=== PATIENT | female | born 2005 | race Caucasian/White ===

== ENCOUNTER 2024-08-15 14:56 | Emergency (ER) | payer OTHER, SELFPAY ==
[2024-08-15 15:07] VITALS: BP 133/75; PULSE 83; RESP 16; TEMP 36.6; O2SAT 99
--- NOTE | 2024-08-15 15:48 | ED.URI ---
HPI - URI/Sore Throat General Chief Complaint: Upper Respiratory Infection Stated Complaint: DIZZY/LIGHT HEADED/SINUS SYMPTOMS Source: patient, family, RN notes reviewed and old records reviewed Mode of arrival: ambulatory Limitations: no limitations History of Present Illness HPI Narrative: 19 year old female accompanied by mother presents to express care with complaints of feelings of sinus congestion and dizziness with some facial pressure with cough since Wednesday. Patient reports that she felt hot and faint on Wednesday like she was going to pass out. She states that Wednesday she felt better just cold sinus symptoms and today she is feeling dizzy again with increased sinus congestion, facial pressure and ear pressure voiced. Patient has history of asthma and has used her rescue inhaler and lungs noted to be clear to auscultation with no tachypnea and SAO2 99% on room air. MD elicited complaint: rhinorrhea, nasal congestion and other (facial pressure and ear pressure) Pertinent past history: asthma Onset (ago): day(s) (3) Consistency: intermittent Severity: moderate Able to tolerate fluids by mouth: Yes Treatments prior to arrival: other (Destiny. Tylenol, Rescue inhaler) Related Data Home Medications ?Medication ?Instructions ?Recorded ?Confirmed ?Last Taken ?Type escitalopram oxalate 20 mg tablet mg 08/15/24 Unknown History fexofenadine 180 mg tablet mg 08/15/24 Unknown History (Allergy Relief (fexofenadine)) norethindrone 1 mg-ethin. cap 08/15/24 Unknown History estradiol 20 mcg (24)-iron 75 mg (4) capsule Allergies Allergy/AdvReac Type Severity Reaction Status Date / Time No Known Allergies Allergy Verified 08/15/24 15:28 Review of Systems Review of Systems: CONSTITUTIONAL:Reports malaise, chills, sweats, no known fever. EYES: Denies visual changes, redness, or discharge. ENT: Reports rhinorrhea, congestion, sinus pain, ear pressure and no sore throat. CARDIOVASCULAR: Denies chest pain, palpitations, or edema. RESPIRATORY: Reports cough.? Denies any dyspnea. GASTROINTESTINAL: Denies abdominal pain, nausea, vomiting, diarrhea SKIN: Denies rash or itching. MUSCULOSKELETAL: Denies myalgia. NEUROLOGIC: Denies headache reports dizziness. All systems reviewed & are unremarkable except as noted in HPI and below PMFSH Past Medical History Medical History (Updated 08/15/24 @ 16:57 by Christiana John NP) Asthma Surgical History Surgical History (Updated 08/15/24 @ 16:37 by Christiana John NP) History of tonsillectomy and adenoidectomy History of placement of ear tubes Social History Social History (Updated 08/15/24 @ 16:32 by Christiana John NP) Smoking status: Never smoker Alcohol intake: current Alcohol use details: social Substance use type: does not use Living arrangements: with roommate(s) Occupation/Education: student Gender identity (if verbalized by the patient): Female Comments At time of signature, agree with nursing past medical, surgical, social and family history. There is no relevant family history pertinent to the presenting complaint Exam Narrative: GENERAL: Well-appearing, well-nourished, and in no acute distress. HEAD: Normocephalic EYES: PERRLA, conjunctivae clear ENT: Nares clear, turbinates edematous and erythematous, clear discharge, sinus pressure. Mucous membranes moist. TM pearly rivera with dull light reflex bilaterally; no tragal tenderness. Oropharynx erythematous without lesions. Tonsils none and throat without exudate, no drooling, no hoarseness, no trismus, uvula midline.post nasal drainage NECK: Supple. No lymphadenopathy CHEST: Clear to auscultation, breath sounds equal. No wheezing, rhonchi, rales, or stridor. No respiratory distress, speaks in full sentences.SAO2 99% on room air HEART: Regular rate and rhythm. No murmur heard. SKIN: Warm, dry, no rash. NEURO: Alert and oriented x3. PSYCH: Normal mood and affect Course Course Emergency Course: Patient is aware of diagnosis, understands and agrees to treatment plan.? Anticipatory guidance given.? Patient agrees to follow-up as directed and is aware of reasons to seek care at the emergency department. Portions of this record may have been created with voice recognition software Level of Care: Express Care Visit Vital Signs Vital signs: Vital Signs Temperature 36.6 C 08/15/24 15:07 Pulse Rate 83 08/15/24 15:07 Respiratory Rate 16 08/15/24 15:07 Blood Pressure 133/75 08/15/24 15:07 Pulse Oximetry 99 08/15/24 15:07 Temperature 36.6 C 08/15/24 15:07 Pulse Rate 83 08/15/24 15:07 Respiratory Rate 16 08/15/24 15:07 Blood Pressure 133/75 08/15/24 15:07 Pulse Oximetry 99 08/15/24 15:07 Reviewed MDM - URI/Sore Throat MDM Narrative Medical decision making narrative: Differential diagnosis considered: [place] virus, strep pharyngitis, allergic rhinitis, upper respiratory tract infection, sinusitis, rhinosinusitis, nasopharyngitis. viral pharyngitis, otitis media, otitis externa, pneumonia, bronchitis, viral cough syndrome, viral syndrome, and influenza.? Exam findings show no acute concerns or changes; patient is non-toxic appearing and is in no distress.? Patient is appropriate for outpatient treatment and follow-up. Differential Diagnosis Differential diagnosis: Likely upper respiratory infection, otitis media, sinusitis, viral infection and other (dizziness) Medical Records Attestation: I reviewed the patient's medical records. Lab Data Attestation: I reviewed the patient's lab results. Critical Care Time Critical Care Time Critical Care Time: No Discharge Plan Discharge Clinical Impression: Bacterial sinusitis, Dizziness Patient Disposition: Home, Self-Care Condition: Stable Instructions: Antibiotic Form, Rhinosinusitis (ED) Additional Instructions: Increase fluids especially juices and water [id number] cough and cold medicine of your choice for your symptoms Continue Destiny daily Continue your inhaler/nebulizer as directed Steroids as directed--take with food heat to the face 20-30 minutes 4-6 times a day for pain Salt water gargles, throat lozenges or throat sprays as desired Antibiotic as directed--finished the medication If your symptoms persist, change or worsen significantly before you can contact your personal physician then please, without delay, go to the emergency department for further evaluation. Follow-up with PCP in 7-10 days or sooner if needed Follow up with PCP soon in regards to your blood pressure which is elevated above threshold for referral. Blood pressure above 120/80 may indicate pre-hypertension. 133/75 Patient Language: Setswana Prescriptions: New amoxicillin 875 mg tablet 875 mg PO Q12H Qty: 20 0RF methylprednisolone [Medrol (Malcolm)] 4 mg tablets,dose pack See Rx Instructions .ROUTE .COMPLEX Qty: 21 0RF Rx Instructions: orally per package directions No Action fexofenadine [Allergy Relief (fexofenadine)] 180 mg tablet escitalopram oxalate 20 mg tablet norethindrone-e.estradiol-iron 1 mg-20 mcg (24)/75 mg (4) capsule Follow-up/Referrals: Bob,Diana [Other] Time of Disposition: 16:13 Quality [place] Coma Scale Eyes: Open Verbal: Oriented and Alert Motor: Follows Commands [place] Coma Total Score: 15
== END 2024-08-15 16:14 | disposition home or self-care (01) ==
PROVIDERS: Emergency Provider Registered Nurse
DX: J32.9 Chronic sinusitis, unspecified (principal); R42 Dizziness and giddiness; J45.909 Unspecified asthma, uncomplicated
CPT/HCPCS: 99203; G0463